=== PATIENT | female | born 1965 ===

== ENCOUNTER 2020-10-03 12:19 | Outpatient (CLI) | payer OTHER | END 2020-10-04 07:28 | disposition home or self-care (01) | LOC: SONOGRAMA 12:19 → MAMO-SONO 14:30 → SONOGRAMA 10-04 07:28 → MAMO-SONO 10-17 10:15 | PROVIDERS: ATTEND Specialist | DX: G56.02 Carpal tunnel syndrome, left upper limb (principal); M79.642 Pain in left hand; M79.641 Pain in right hand; M65.4 Radial styloid tenosynovitis [de Quervain]; M65.842 Other synovitis and tenosynovitis, left hand; M65.832 Other synovitis and tenosynovitis, left forearm; M19.042 Primary osteoarthritis, left hand; M19.041 Primary osteoarthritis, right hand ==

== ENCOUNTER 2020-11-14 08:41 | Outpatient (CLI) | payer OTHER | END 2020-11-14 08:48 | disposition home or self-care (01) | LOC: SONOGRAMA 08:41 | PROVIDERS: ATTEND Physical Medicine & Rehabilitation | DX: M25.512 Pain in left shoulder (principal); M75.52 Bursitis of left shoulder; M75.22 Bicipital tendinitis, left shoulder; M25.532 Pain in left wrist; M75.02 Adhesive capsulitis of left shoulder; C50.112 Malignant neoplasm of central portion of left female breast ==

== ENCOUNTER 2021-02-04 09:06 | Outpatient (CLI) | payer OTHER | END 2021-02-04 09:12 | disposition home or self-care (01) | LOC: MAMO-SONO 09:06 | PROVIDERS: ATTEND Obstetrics & Gynecology Obstetrics | DX: N60.01 Solitary cyst of right breast (principal); N60.02 Solitary cyst of left breast; D25.1 Intramural leiomyoma of uterus; R10.2 Pelvic and perineal pain ==

== ENCOUNTER 2022-02-06 09:39 | Outpatient (CLI) | payer OTHER | END 2022-02-06 15:55 | disposition home or self-care (01) | LOC: MAMO-SONO 09:39 | PROVIDERS: ATTEND Obstetrics & Gynecology | DX: N64.4 Mastodynia (principal); Z78.0 Asymptomatic menopausal state ==

== ENCOUNTER 2022-11-22 10:43 | Outpatient (CLI) | payer OTHER | END 2022-11-22 10:53 | disposition home or self-care (01) | LOC: RAD 10:43 | PROVIDERS: ATTEND Internal Medicine Pulmonary Disease | DX: J45.30 Mild persistent asthma, uncomplicated (principal) ==

== ENCOUNTER 2023-10-28 10:14 | Outpatient (CLI) | payer OTHER | END 2023-10-28 10:17 | disposition home or self-care (01) | LOC: MAMO-SONO 10:14 | PROVIDERS: ATTEND Obstetrics & Gynecology | DX: N60.11 Diffuse cystic mastopathy of right breast (principal); N60.12 Diffuse cystic mastopathy of left breast ==

== ENCOUNTER 2024-03-07 13:26 | Outpatient (CLI) | payer OTHER | END 2024-03-07 13:29 | disposition home or self-care (01) | LOC: RAD 13:26 | PROVIDERS: ATTEND Specialist | DX: J32.4 Chronic pansinusitis (principal); J45.20 Mild intermittent asthma, uncomplicated; H10.45 Other chronic allergic conjunctivitis; J45.998 Other asthma; J30.2 Other seasonal allergic rhinitis; L20.0 Besnier's prurigo ==

== ENCOUNTER 2024-06-24 08:36 | Outpatient (CLI) | payer OTHER | END 2024-06-24 08:43 | disposition home or self-care (01) | LOC: RAD 08:36 | PROVIDERS: ATTEND General Practice | DX: U07.1 COVID-19 (principal) ==

== ENCOUNTER 2024-07-29 12:29 | Outpatient (CLI) | payer OTHER | END 2024-07-29 12:32 | disposition home or self-care (01) | LOC: RAD 12:29 | DX: M17.12 Unilateral primary osteoarthritis, left knee (principal); M17.11 Unilateral primary osteoarthritis, right knee ==

== ENCOUNTER 2024-09-12 09:22 | Outpatient (CLI) | payer OTHER | END 2024-09-12 09:25 | disposition home or self-care (01) | LOC: MRI 09:22 | DX: M24.561 Contracture, right knee (principal) | CPT/HCPCS: 73721 ==